=== PATIENT | male | born 1980 | race Caucasian/White ===

== ENCOUNTER 2024-10-01 08:46 | Emergency (ER) | payer OTHER, SELFPAY ==
--- NOTE | ~2024-10-01 | XR_ITS ---
Clinical Indication: Cough, shortness of breath PA and lateral views of the chest: Comparison: None Findings: The lungs are clear, without evidence of focal consolidation or pleural effusion. Cardiome diastinal silhouette is within normal limits. Bones and soft tissues are unremarkable. Impression: Normal chest. Reviewed, dictated and finalized at [facility]. [place] Impression: Normal chest.
[2024-10-01 08:50] VITALS: BP 135/100; PULSE 80; RESP 18; TEMP 36.4; O2SAT 97
--- OUTSIDE RECORDS SUMMARY | 2024-10-01 09:14 | XMS_ITS | Clinical Summary ---
Author Organization [facility] [address] Address [address] [place] [address] Care Team Providers Care Cemetery Keeper Name Role Phone Navdeep King Primary Care Provide r Allergies Active Allergy Reactions Criticality Noted Date Comments Iodinated Contrast Media Medications omeprazole (PriLOSEC) 40 mg capsule TAKE 1 CAPSULE BY MOUTH TWICE A DAY 120 capsule 1 Active albuterol HFA (PROVENTIL HFA,VENTOLIN HFA,PROAIR HFA) 90 mcg/actuation inhaler INHALE 2 PUFFS INTO THE LUNGS EVERY 6 HOURS NEEDED FOR WHEEZE 2 Active famotidine (PEPCID) 20 mg tablet Take 1 tablet (20 mg total) by mouth 2 (two) times a day as needed 2 Active albuterol HFA (PROVENTIL HFA,VENTOLIN HFA,PROAIR HFA) 90 mcg/actuation inhalerIndication s:Mild intermittent asthma, unspecified whether complicated Inhale 2 puffs every 6 (six) hours as needed for wheezing 1 each 2 Active doxycycline (VIBRAMYCIN) 100 mg capsule Take 1 tablet/capsul e (100 mg total) by mouth 2 (two) times a day 20 capsule 2 Active erythromycin (ILOTYCIN) ophthalmic ointment Place a 1/2 inch ribbon of ointment into the lower eyelid. 1 g 2 Active benzonatate (TESSALON) 100 mg capsuleIndication s:Cough Take 1 capsule (100 mg total) by mouth 3 (three) times a day as needed for cough 42 capsule 5 Active azithromycin (ZITHROMAX) 250 mg tabletIndications :Acute cough,Pharyngitis , unspecified etiology Take 2 tabs (500 mg) by mouth today, than 1 tab (250 mg) daily for 4 days. 6 tablet 5 09/29/19 25 predniSONE (DELTASONE) 50 mg tabletIndications :Obstructive Pulmonary Disease Take 1 tablet (50 mg) by mouth daily for 5 days 5 tablet 5 09/29/19 25 Active Problems Problem Noted Date Diagnosed Date Herniated lumbar intervertebral disc 06/13/2010 Congenital spondylolysis of lumbosacral region 1 Encounters Date Type Department Care Team Description 09/24/2024 2:15 PM CERTIFIED PERSONAL FINANCE COUNSELOR Office Visit [facility] [place] [address] [place] [address] Lesley Perera NP Suspected COVID-19 virus infection (Primary Dx); Lower respiratory infection; Acute cough; Pharyngitis, unspecified etiology from Last 3 Months Surgical History Surgery Date Site/Laterality Comments BACK SURGERY Back surgery APPENDECTOMY Appendectomy Medical History Medical History Date Comments Anxiety Bone fracture Dizziness Snoring GERD (gastroesophageal reflux disease) Family History Medical History Relation Name Comments Diabetes Father Diabetes mellit us; Hypertension Father Hypertension; Throat cancer Mother Cancer -throat ; Relation Name Status Comments Father Mother Social History Tobacco Use Types Packs/Day Years Used Date Smoking Tobacco: Never Smokeless Tobacco: Never Alcohol Use Standard Drinks/Week Comments Yes 0 (1 standard drink = 0.6 oz pur e alcohol) Sex and Gender Information Value Date Recorded Sex Assigned at Not on file Legal Sex Male 3:01 AM CERTIFIED PERSONAL FINANCE COUNSELOR Gender Identity Not on file Sexual Orientation Not on file Obstetrics History Last Filed Vital Signs Vital Sign Reading Time Taken Comments Blood Pressure 130/86 09/24/2024 2:07 PM CERTIFIED PERSONAL FINANCE COUNSELOR Pulse 84 09/24/2024 2:07 PM CERTIFIED PERSONAL FINANCE COUNSELOR Temperature 36.4 C (97.5 F) 09/24/2024 2:07 PM CERTIFIED PERSONAL FINANCE COUNSELOR Respiratory Rate 18 09/24/2024 2:07 PM CERTIFIED PERSONAL FINANCE COUNSELOR Oxygen Saturation 98% 09/24/2024 2:07 PM CERTIFIED PERSONAL FINANCE COUNSELOR Inhaled Oxygen Concentration - - Weight 94.8 kg (209 lb) 09/24/2024 2:07 PM CERTIFIED PERSONAL FINANCE COUNSELOR Height 175.3 cm (5' 9 ) 09/24/2024 2:07 PM CERTIFIED PERSONAL FINANCE COUNSELOR Body Mass Index 30.86 09/24/2024 2:07 PM CERTIFIED PERSONAL FINANCE COUNSELOR Plan of Treatment Health Maintenance Due Date Last Done Comments Colon Cancer Screening-Colonoscopy 1978 Depression Screening 1978 Hepatitis C Screening 1978 DTaP/Tdap/Td Vaccine (1 - Tdap) 1989 Hepatitis B Screening 1996 Regular Well Visit/Exam 18-64 1996 Covid-19 Vaccine (3 - 2023-2 5 season) 2024 03/29/2021, 03/08/2021 Influenza Vaccine (#1) 2024 HPV Vaccines Aged Out No longer eligi ble based on patient's age to complete this topic Pneumococcal vaccine <65 Aged Out No longer eligible based on patient's age to complete this topic Procedures Procedure Name Priority Date/Time Associated Diagnosis Comments POCT RAPID STREP Routine 09/24/2024 2:34 PM CERTIFIED PERSONAL FINANCE COUNSELOR Suspected COVID-19 virus infection POC INFLUENZA A/B, COVID-19 ANTIGEN Routine 09/24/2024 2:34 PM CERTIFIED PERSONAL FINANCE COUNSELOR Suspected COVID-19 virus infection from Last 3 Months Results * POC Influenza A/B, COVID-19 antigen (09/24/2024 2:34 PM CERTIFIED PERSONAL FINANCE COUNSELOR) Influenza A Ag, POC Negative Negative [facility] Influenza B Ag, POC Negative Negative [facility] COVID-19 Ag POC Presumptive Negative Presumptive Negative, Invalid [facility] Nasal 09/24/2024 2:34 PM CERTIFIED PERSONAL FINANCE COUNSELOR us Lesley Perera INSPECTOR REPAIRER POINT OF CARE TEST ORDERAB LES Final Result [facility] [address] [place] [address], [facility] * POCT rapid strep A (09/24/2024 2:34 PM CERTIFIED PERSONAL FINANCE COUNSELOR) Rapid Strep A, POC Negative Negative Swab 09/24/2024 2:34 PM CERTIFIED PERSONAL FINANCE COUNSELOR Lesley Perera INSPECTOR REPAIRER POINT OF CARE TEST ORDERAB LES Final Result from Last 3 Months Insurance [facility]/PPO Address: [address] [address] [place] [address] [place] [address] [facility]/PPO Address: [address] [address] [place] [address] Care Teams Cemetery Keeper Relationship Specialty Start Date End Date Navdeep King DO [address] [place] [address] [phone] PCP - General 02/24/22
--- OUTSIDE RECORDS SUMMARY | 2024-10-01 09:14 | XMS_ITS | Referral Summary ---
Author Organization [facility] [address] [place] [address] Care Team Providers Care Bag Cutter Name Role Phone Navdeep King DO Primary Care Provide r Encounters Date Type Department Care Team Description 09/24/2024 2:15 PM HEALTHCARE MANAGEMENT Office Visit [facility] [place] [address] [place] [id number] Lesley Perera, ARIEL Suspected COVID-19 virus infection (Primary Dx); Lower respiratory infection; Acute cough; Pharyngitis, unspecified etiology from Last 3 Months Allergies Active Allergy Reactions Criticality Noted Date [...] 06/13/2010 Congenital spondylolysis of lumbosacral region 1 Social History Tobacco Use Types Packs/Day Years Used Date Smoking Tobacco: Never Smokeless Tobacco: Never Alcohol Use Standard Drinks/Week Comments Yes 0 (1 standard drink = 0.6 oz pur e alcohol) Sex and Gender Information Value Date Recorded Sex Assigned at Not on file Legal Sex Male 3:01 AM HEALTHCARE MANAGEMENT Gender Identity Not on file Sexual Orientation Not on file Last Filed Vital Signs Vital Sign Reading Time Taken Comments Blood Pressure 130/86 09/24/2024 2:07 PM HEALTHCARE MANAGEMENT Pulse 84 09/24/2024 2:07 PM HEALTHCARE MANAGEMENT Temperature 36.4 C (97.5 F) 09/24/2024 2:07 PM HEALTHCARE MANAGEMENT Respiratory Rate 18 09/24/2024 2:07 PM HEALTHCARE MANAGEMENT Oxygen Saturation 98% 09/24/2024 2:07 PM HEALTHCARE MANAGEMENT Inhaled Oxygen Concentration - - Weight 94.8 kg (209 lb) 09/24/2024 2:07 PM HEALTHCARE MANAGEMENT Height 175.3 cm (5' 9 ) 09/24/2024 2:07 PM HEALTHCARE MANAGEMENT Body Mass Index 30.86 09/24/2024 2:07 PM HEALTHCARE MANAGEMENT Plan of Treatment Not on file Procedures Procedure Name Priority Date/Time Associated Diagnosis Comments POCT RAPID STREP Routine 09/24/2024 2:34 PM HEALTHCARE MANAGEMENT Suspected COVID-19 virus infection POC INFLUENZA A/B, COVID-19 ANTIGEN Routine 09/24/2024 2:34 PM HEALTHCARE MANAGEMENT Suspected COVID-19 virus infection from Last 3 Months Results * POC Influenza A/B, COVID-19 antigen (09/24/2024 2:34 PM HEALTHCARE MANAGEMENT) Influenza A Ag, POC Negative Negative [facility] Influenza B Ag, POC Negative Negative [facility] COVID-19 Ag POC Presumptive Negative Presumptive Negative, Invalid [facility] Nasal 09/24/2024 2:34 PM HEALTHCARE MANAGEMENT Lesley Perera NP POINT OF CARE TEST ORDERAB LES Final Result [facility] [address] [place] [address], [facility] * POCT rapid strep A (09/24/2024 2:34 PM HEALTHCARE MANAGEMENT) Rapid Strep A, POC Negative Negative Swab 09/24/2024 2:34 PM HEALTHCARE MANAGEMENT Lesley Perera NIBBLER OPERATOR POINT OF CARE TEST ORDERAB LES Final Result from Last [address] [facility] HMO/PPO Address: [address] [address] [place] [address] [facility] H[facility]/PPO Address: [address] [address] [place] [address] Care Teams Bag Cutter Relationship Specialty Start Date End Date Navdeep King DO [address] [place] [id number] PCP - General 02/24/22
--- OUTSIDE RECORDS SUMMARY | 2024-10-01 09:14 | XMS_ITS | Clinical Summary ---
Author Organization [facility] Address [address] [place] [address] Care Team Providers Care Clinical Documentation Nurse Name Role Phone Unavailable Primary Care Provider Unavailabl e Allergies Active Allergy Reactions Criticality Noted Date Comments Iodinated Contrast Media Hives High 05/04/2010 Medications HYDROcodone-acet aminophen (NORCO) 7.5-325 mg Oral Tab Take 1 Tab by mouth every 6 hours as needed. Every 6 hrs prn 90 Tab 2 05/04/2010 Active Active Problems Problem Noted Date Diagnosed Date Back pain with radiation 05/04/2010 Vitamin D deficiency 05/04/2010 Family History Medical History Relation Name Comments Hypertension Father SLE Mother Relation Name Status Comments Brother Alive Father Alive Mother Alive Sister Alive Social History Tobacco Use Types Packs/Day Years Used Date Smoking Tobacco: Never Alcohol Use Standard Drinks/Week Comments Yes 0 (1 standard drink = 0.6 oz pur e alcohol) Sex and Gender Information Value Date Recorded Sex Assigned at Not on file Legal Sex Male 5:55 AM WARP HANGER Gender Identity Not on file Sexual Orientation Not on file Last Filed Vital Signs Vital Sign Reading Time Taken Comments Blood Pressure 130/70 05/04/2010 2:50 PM CDT Pulse - - Temperature - - Respiratory Rate - - Oxygen Saturation - - Inhaled Oxygen Concentration - - Weight 87.1 kg (192 lb) 05/04/2010 2:50 PM CDT Height 175.3 cm (5' 9 ) 05/04/2010 2:50 PM CDT Body Mass Index 28.35 05/04/2010 2:50 PM CDT Plan of Treatment Health Maintenance Due Date Last Done Comments DTAP/TDAP/TD VACCINES (1 - Tdap) 1997 HEPATITIS B VACCINES (1 of 3 - 19+ 3-dose series) 1997 COLORECTAL SCREENING 2023 Colorectal Cancer Screening 2023 FIT-DNA Q 3 years 2023 FIT/FOBT Q 1 year 2023 Flex Sig/CT Colonography Q 5 years 2023 INFLUENZA VACCINE (#1) 2024 HPV VACCINES Aged Out No longer eligi ble based on patient's age to complete this topic Insurance
--- OUTSIDE RECORDS SUMMARY | 2024-10-01 09:14 | XMS_ITS | Clinical Summary ---
Author Organization [facility] [employer] Address [address] [address] Care Team Providers Care Radio Station Engineer Name Role Phone Unavailable Primary Care Provider Unavailabl e Source Comments [facility] [employer],non-owned Affiliates and Associated Physician Practices is amultiple site organization consisting of ambulatory clinics and hospital sitesin [place], [place], [place] and [place]. This disclosure is being madepursuant to the Care Everywhere program and may not contain all information available regarding this patient. Last updated 18.[employer] Allergies Active Allergy Reactions Criticality Noted Date Comments Iodine Urticaria,Shortness of Breath High 2009 Medications Be aware that medications may not be up to date on this document. Always verify current medications with the patient. No known medications Active Problems Problem Noted Date Diagnosed Date Vitamin D deficiency 04/04/2010 Sleep disturbance 03/28/2010 Low back pain 03/28/2010 Overview (06/27/2015): Folliculitis 03/28/2010 Family History Medical History Relation Name Comments Diabetes - Type 1 Father Hypertension Father Lupus Mother Relation Name Status Comments Father Mother Social History Tobacco Use Types Packs/Day Years Used Date Smoking Tobacco: Never Smokeless Tobacco: Never Alcohol Use Standard Drinks/Week Comments Yes 0 (1 standard drink = 0.6 oz pur e alcohol) rare Sex and Gender Information Value Date Recorded Sex Assigned at Not on file Gender Identity Not on file Sexual Orientation Not on file Last Filed Vital Signs Vital Sign Reading Time Taken Comments Blood Pressure 148/100 03/23/2019 3:17 PM CDT Pulse 63 03/23/2019 3:17 PM CDT Temperature 37.1 C (98.8 F) 03/23/2019 3:17 PM CDT Respiratory Rate 16 03/23/2019 3:17 PM CDT Oxygen Saturation 97% 03/23/2019 3:17 PM CDT Inhaled Oxygen Concentration - - Weight 95.3 kg (210 lb) 03/23/2019 3:17 PM CDT Height 175.3 cm (5' 9 ) 03/23/2019 3:17 PM CDT Body Mass Index 31.01 03/23/2019 3:17 PM CDT Plan of Treatment Health Maintenance Due Date Last Done Comments COLOGUARD (AGES 45-75) - COL ON CA SCREENING 1978 COLON MONITORING 1978 COLONOSCOPY - COLON CA SCREENING 1978 CT COLONOGRAPHY - COLON CA SCREENING 1978 Colorectal Cancer Screening 1978 FIT - COLON CA SCREENING 1978 FLEX SIG - COLON CA SCREENING 1978 LIPID TESTING 1978 HIV SCREENING 1993 HEPATITIS C SCREENING 09/12/1996 DTAP/TDAP/TD VACCINES (1 - Tdap) 1997 HEPATITIS B VACCINE (1 of 3 - 19+ 3-dose series) 1997 SCREENING FOR DIABETES 12/11/2018 03/28/2010 COVID-19 VACCINE (1 - 2023-2 5 season) 2024 INFLUENZA VACCINE (#1) 2024 DEPRESSION SCREENING 08/20/2024 ZOSTER VACCINE (1 of 2) 2028 HIB VACCINE Aged Out No longer eligi ble based on patient's age to complete this topic HPV VACCINE Aged Out No longer eligi ble based on patient's age to complete this topic MENINGOCOCCAL (Group B) VACCINE Aged Out No longer eligible based on patient's age to complete this topic MENINGOCOCCAL VACCINE Aged Out No kari sharlene eligible based on patient's age to complete this topic PNEUMOCOCCAL VACCINE Aged Out No long er eligible based on patient's age to complete this topic Procedures Procedure Name Priority Date/Time Associated Diagnosis Comments GENERAL HEALTH PANEL Routine 03/28/2010 4:23 PM CDT Malaise and Fatigue from Last 3 Months or Most Recently Relevant to Health Maintenance Results * (ABNORMAL) GENERAL HEALTH PANEL (03/28/2010 4:23 PM CDT) Glucose 91 65 - 99 mg/dL [facility] INSURANCE BILL BUN 13 5 - 26 mg/dL [facility] INSURANCE BILL Creatinine 1.07 0.76 - 1.27 mg/dL [facility] INSURANCE BILL eGFR by MDRD >59 >59 mL/min/1. 73 [facility] INSURANCE BILL eGFR by MDRD >59 >59 mL/min/1. 73 [facility] INSURANCE BILL Comment: Note: Persistent reduction for 3 months or more in an eGFR <60 mL/min/1.73 m2 defines CKD. Patients with eGFR values >/=60 mL/min/1.73 m2 may also have CKD if evidence of persistent proteinuria is present. Additional information may be found at www.kdoqi.org. BUN/Creatinine Ratio 12 8 - 27 [facility] INSURANCE BILL Sodium 142 135 - 145 mmol/L [facility] INSURANCE BILL Potassium 4.4 3.5 - 5.2 mmol/L [facility] INSURANCE BILL Chloride 101 97 - 108 mmol/L [facility] INSURANCE BILL CO2 24 20 - 32 mmol/L [facility] INSURANCE BILL Calcium 9.3 8.7 - 10.2 mg/dL [facility] INSURANCE BILL Protein Total 7.3 6.0 - 8.5 g/dL [facility] INSURANCE BILL Albumin 4.6 3.5 - 5.5 g/dL [facility] INSURANCE BILL Globulin Total 2.7 1.5 - 4.5 g/dL [facility] INSURANCE BILL Albumin/Globulin Ratio 1.7 1.1 - 2.5 [facility] INSURANCE BILL Bilirubin Total 0.3 0.0 - 1.2 mg/dL [facility] INSURANCE BILL Alkaline Phosphatase 60 25 - 150 IU/L [facility] INSURANCE BILL AST 21 0 - 40 IU/L [facility] INSURANCE BILL ALT 30 0 - 55 IU/L [facility] INSURANCE BILL TSH 1.590 0.450 - 4.500 uIU/mL [facility] INSURANCE BILL Comment:Please note refere nce interval change WBC 10.8(H) 4.0 - 10.5 x10E3/uL [facility] INSURANCE BILL RBC 5.12 4.10 - 5.60 x10E6/uL [facility] INSURANCE BILL Hemoglobin 14.5 12.5 - 17.0 g/dL [facility] INSURANCE BILL Hematocrit 42.5 36.0 - 50.0 % [facility] INSURANCE BILL MCV 83 80 - 98 fL [facility] INSURANCE BILL MCH 28.3 27.0 - 34.0 pg [facility] INSURANCE BILL MCHC 34.1 32.0 - 36.0 g/dL [facility] INSURANCE BILL RDW 13.1 11.7 - 15.0 % [facility] INSURANCE BILL Platelet Count 297 140 - 415 x10E3/uL [facility] INSURANCE BILL Granulocytes % 62 40 - 74 % [facility] INSURANCE BILL Lymphocytes % 30 14 - 46 % [facility]URANCE BILL Monocytes % 5 4 - 13 % [facility] INSURANCE BILL Eosinophils % 3 0 - 7 % [facility] INSURANCE BILL Basophils % 0 0 - 3 % [facility] INSURANCE BILL Immature Cells CANCELED [facility] INSURANCE BILL Comment:Result canceled by cristino krishnan ancillary Granulocytes Absolute 6.6 1.8 - 7.8 x10E3/uL [facility] INSURANCE BILL Lymphocytes Absolute 3.2 0.7 - 4.5 x10E3/uL [facility] INSURANCE BILL Monocytes Absolute 0.6 0.1 - 1.0 x10E3/uL [facility] INSURANCE BILL Eosinophils Absolute 0.3 0.0 - 0.4 x10E3/uL [facility] INSURANCE BILL Basophils Absolute 0.0 0.0 - 0.2 x10E3/uL [facility] INSURANCE BILL Immature Granulocytes 0 0 - 1 % [facility] INSURANCE BILL Immature Granulocytes Absolute 0.0 0.0 - 0.1 x10E3/uL [facility] INSURANCE BILL nRBC CANCELED [facility] INSURANCE BILL Comment:Result canceled by cristino krishnan ancillary Comment Hematology CANCELED [facility] INSURANCE BILL Comment:Result canceled by cristino krishnan ancillary BLOOD SPECIMEN / Unknown 03/28/2010 4:23 PM CDT 03/28/2010 9:24 PM CDT Narrative Resulting Agency Comment [facility] [address] [phone] Octavio Schaffer MD LAB - CHEMISTRY OR DERABLES [facility] INSURANCE BILL from Last 3 Months or Most Recently Relevant [place] [address] Juan Cordova Personal/Family Self 1980 [address] [place] [address] Juan Cordova Personal/Family Self 1980 [address] [place] [address]
--- OUTSIDE RECORDS SUMMARY | 2024-10-01 09:14 | XMS_ITS | Patient Health Summary ---
Author Organization [facility] Address [address] [place] [address] Care Team Providers Care Digital Advertising Specialist Name Role Phone Unavailable Primary Care Provider Unavailabl e Note from [facility],non-owned Affiliates and Associated Physician Practices is amultiple site organization consisting of ambulatory clinics and hospital sitesin [place], [place], [place] and [place]. This disclosure is being madepursuant to the Care Everywhere program and may not contain all information available regarding this patient. Last updated 18.[facility] Allergies * Iodine(Urticaria,Shortness of Breath) -High Criticality Medications Be aware that medications may not be up to date on this document. Always verify current medications with the patient. No known medications Active Problems Problem Noted Date Diagnosed Date Vitamin D deficiency 04/04/2010 Sleep disturbance 03/28/2010 Low back pain 03/28/2010 Folliculitis 03/28/2010 Social History Tobacco Use Types Packs/Day Years [...] Mass Index 31.01 03/23/2019 3:17 PM CDT Procedures * MRI LUMBAR SPINE WWO CONTRAST(Performed 03/30/2010) Performed for LBP (Low Back Pain) * TESTOSTERONE MALE FREE(Performed 03/28/2010) Performed for Malaise and Fatigue * VITAMIN D 25-HYDROXY(Performed 03/28/2010) Performed for Malaise and Fatigue * GENERAL HEALTH PANEL(Performed 03/28/2010) Performed for Malaise and Fatigue * GROSS EXAM PATHOLOGY(Performed 06/21/1995) Results * MRI SPINE LUMBAR WITH & WITHOUT CONTRAST MP (03/30/2010 1:12 PM CDT) Anatomical Region Laterality Modality Spine Magnetic Resonan ce 03/30/2010 2:03 PM CDT Impressions 03/30/2010 2:03 PM CDT 1. Prior left partial laminectomy at L5-S1 and enhancing scar. No residual or recurrent disk herniation. Narrative 03/30/2010 2:03 PM CDT MRI lumbar spine with and without contrast. Indication: Progressive back pain with difficulty walking and running for last 2 years. Prior lumbar surgery 10 years ago. Comparison: [none ] Technique: Multiplanar, multiweighted MR images of Lumbar Spine without intravenous contrast. Findings: There are no comparison radiographs of the lumbar spine available at this time. For the purposes of this examination, it should be assumed that this patient has 5 lumbar vertebral bodies. Alignment: Normal, minimal grade 1 retrolisthesis at L5-S1. Marrow: Normal Spinal cord: Normal Disc spaces: Disk desiccation and disk bulges particularly at L5-S1. Following levels were directly imaged in the axial plane: L5-S1: Prior partial laminectomy on the left side with enhancing scar in the left lateral recess. L4-L5: Mild annular bulge L3-L4: Unremarkable L2-L3: Unremarkable L1-L2: Unremarkable Following intravenous contrast there is no abnormal enhancement in the spinal cord or spinal canal.. Procedure Note Vik Campos MD - 03/30/2010 MRI lumbar spine with and without contrast. Indication: Progressive back pain with difficulty walking and running for last 2 years. Prior lumbar surgery 10 years ago. Comparison: [none ] Technique: Multiplanar, multiweighted MR images of Lumbar Spine without intravenous contrast. Findings: There are no comparison radiographs of the lumbar spine available at this time. For the purposes of this examination, it should be assumed that this patient has 5 lumbar vertebral bodies. Alignment: Normal, minimal grade 1 retrolisthesis at L5-S1. Marrow: Normal Spinal cord: Normal Disc spaces: Disk desiccation and disk bulges particularly at L5-S1. Following levels were directly imaged in the axial plane: L5-S1: Prior partial laminectomy on the left side with enhancing scar in the left lateral recess. L4-L5: Mild annular bulge L3-L4: Unremarkable L2-L3: Unremarkable L1-L2: Unremarkable Following intravenous contrast there is no abnormal enhancement in the spinal cord or spinal canal.. IMPRESSION 1. Prior left partial laminectomy at L5-S1 and enhancing scar. No residual or recurrent disk herniation. Octavio Schaffer MD MR ORDERABLES * (ABNORMAL) GENERAL HEALTH PANEL (03/28/2010 4:23 [...] CANCELED [facility] INSURANCE BILL Comment:Result canceled by t he ancillary Comment Hematology CANCELED [facility] INSURANCE BILL Comment:Result canceled by t he ancillary BLOOD SPECIMEN / Unknown 03/28/2010 4:23 PM CDT 03/28/2010 9:24 PM CDT Narrative Resulting Agency Comment [address] [id number] Octavio Schaffer MD LAB - CHEMISTRY OR DERABLES [facility] INSURANCE BILL * (ABNORMAL) VITAMIN D 25-HYDROXY (03/28/2010 4:23 PM CDT) Vitamin D, 25 Hydroxy 20.4(L) 32.0 - 100.0 ng/mL [facility] INSURANCE BILL Comment: Recent studies consider the lower limit of 32.0 ng/mL to be a threshold for optimal health. Shen BW. J Nutr. 2005 Sep;135(2):317-22. BLOOD SPECIMEN / Unknown 03/28/2010 4:23 PM CDT 03/28/2010 9:24 PM CDT Narrative Resulting Agency Comment [address] [id number] Octavio Schaffer MD LAB - CHEMISTRY OR DERABLES [facility] INSURANCE BILL * TESTOSTERONE MALE FREE (03/28/2010 4:23 PM CDT) Free Testosterone(Di rect) 9.8 8.7 - 25.1 pg/mL [facility] INSURANCE BILL BLOOD SPECIMEN / Unknown 03/28/2010 4:23 PM CDT 03/28/2010 9:24 PM CDT Narrative Resulting Agency Comment [facility] [address] [phone] Octavio Schaffer MD LAB - CHEMISTRY OR DERABLES [facility] INSURANCE BILL * GROSS EXAM PATHOLOGY (06/21/1995 3:00 PM COMPUTATOR) Result CASE NUMBER [id number] [facility] PATH REPORT Comment: ORDERING PHYSICIAN ROBERT CASTELLANOS SPECIMEN TYPE Nails-X2 CLINICAL HISTORY The patient is a 14-year-old boy who is status post right femoral fracture with internal fixation. GROSS DESCRIPTION Submitted in one container for gross examination only labeled nails X 2 are two metallic, curved nails each with a measurement of 38 cm. in length x 0.5 cm. in diameter. (CT/akn) GROSS DIAGNOSIS GROSS DIAGNOSIS ORTHOPEDIC HARDWARE. Seedling Puller Michelle Dominguez RESIDENT IN PATHOLOG Wilber Valencia M.D. PATHOLOGIST Stanford Eid M.D. ELECTRONICALLY [facility] MISCELLANEOUS SAMPLES / Unknown 06/21/1995 3:00 PM COMPUTATOR 06/21/1995 3:38 PM COMPUTATOR Historical Provider LAB - PATHOLOGY/C YTOLOGY ORDERABLES Performing Organization Address City/[facility]/ZIP Co de Phone Number [facility] PATH REPORT
--- OUTSIDE RECORDS SUMMARY | 2024-10-01 09:14 | XMS_ITS | Clinical Summary ---
Author Organization [facility] Address [address] [place] [address] Care Team Providers Care Doctor Assistant Name Role Phone Navdeep King DO Primary Care Provider + Allergies Active Allergy Reactions Criticality Noted Date Comments Iodinated Contrast Media Anaphylaxis High 10/14/2020 Iodine Hives High 05/04/2010 Medications ibuprofen 200 MG tablet Take 1 tablet (200 mg total) by mouth every 6 (six) hours as needed for Pain. Active albuterol sulfate HFA 108 (90 Base) MCG/ACT inhalerIndication s:Bronchitis INHALE 2 PUFFS INTO THE LUNGS EVERY 6 HOURS NEEDED FOR WHEEZE 18 g 5 2 Active losartan (COZAAR) 25 MG tabletIndications :Primary hypertension Take 1 tablet (25 mg total) by mouth daily. 90 tablet 3 4 Active omeprazole (PRILOSEC) 40 MG capsuleIndication s:Gastroesophagea l reflux disease, unspecified whether esophagitis present Take 1 capsule (40 mg total) by mouth daily. 90 capsule 3 4 Active Active Problems Problem Noted Date Diagnosed Date Herniated lumbar intervertebral disc 06/13/2010 Vitamin D deficiency 04/04/2010 Family History Medical History Relation Comments Depression Father Diabetes Father Heart Disease Father Hyperlipidemia Father Stroke Father Relation Status Comments Father Alive Mother Alive health condition s unknown Social History Tobacco Use Types Packs/Day Years Used Date Smoking Tobacco: Never Smokeless Tobacco: Never Tobacco Cessation:Counseling Given: No Comments:na Alcohol Use Standard Drinks/Week Comments Yes 0 (1 standard drink = 0.6 oz pur e alcohol) occasionally PHQ-2 Answer Date Recorded Patient Health Questionnaire-2 Score 0 02/19/2024 Sex and Gender Information Value Date Recorded Sex Assigned at Not on file Legal Sex Male 11:05 AM CDT Gender Identity Not on file Sexual Orientation Not on file 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 Not on file Not on file Not on file Last Filed Vital Signs Vital Sign Reading Time Taken Comments Blood Pressure 122/80 02/19/2024 10:35 AM CDT Pulse 70 02/19/2024 10:35 AM CDT Temperature 36.9 C (98.4 F) 02/19/2024 10:35 AM CDT Respiratory Rate 20 02/19/2024 10:35 AM CDT Oxygen Saturation 98% 02/19/2024 10:35 AM CDT Inhaled Oxygen Concentration - - Weight 94.5 kg (208 lb 4.8 oz) 02/19/2024 10:35 AM CDT Height 175.3 cm (5' 9 ) 02/19/2024 10:35 AM CDT Body Mass Index 30.76 02/19/2024 10:35 AM CDT Plan of Treatment Upcoming Encounters Date Type Department Care Team (Late st Contact Info) Description 11/03/2024 9:40 AM CDT Office Visit [facility] Family & Internal Medicine [address] [phone] Navdeep King, [address] [place] [id number] Health Maintenance Due Date Last Done Comments Colorectal Cancer Screening Colonoscopy (10 Years) 1980 Annual Physical 1981 Hepatitis C 1996 Hepatitis B Vaccines (1 of 3 - 19+ 3-dose series) 1997 COVID-19 Vaccine (3 - 2023-2 5 season) 2024 03/29/2021, 03/08/2021 Influenza Adult (#1) 2024 PHQ-2 (Physician [place]) 08/20/2024 02/19/2024 DTaP, Tdap and Td Vaccines ( 1 - Tdap) 02/18/2025 Postponed from 09/17 (Patient Refused) HPV Vaccines Aged Out No longer eligi ble based on patient's age to complete this topic Meningococcal B Vaccine Aged Out No l onger eligible based on patient's age to complete this topic Meningococcal Vaccine Aged Out No kari sharlene eligible based on patient's age to complete this topic Pneumococcal Vaccine: Pediatrics (0 to 5 Years) and At-Risk Patients (6 to 64 Years) Aged Out No longer eligible b ased on patient's age to complete this topic RSV Immunizations Under 20 Months Aged Out No longer eligible b ased on patient's age to complete this topic Care Teams Doctor Assistant Relationship Specialty Start Date End Date Navdeep King DO [address] [place] [phone] PCP - General FAMILY PRACTICE 03/22/21
--- OUTSIDE RECORDS SUMMARY | 2024-10-01 09:14 | XMS_ITS | Clinical Summary ---
Author Organization [facility] Address [address] [place] [address] Phone Care Team Providers Care Medical Dir Name Role Phone Provider, None Primary Care Provider Unavailabl e Allergies Active Allergy Reactions Criticality Noted Date Comments Iodinated Contrast Media Anaphylaxis 10/14/2020 Medications No known medications Social History Tobacco Use Types Packs/Day Years Used Date Smoking Tobacco: Never Smokeless Tobacco: Never Alcohol Use Standard Drinks/Week Comments Yes 0 (1 standard drink = 0.6 oz pur e alcohol) social Sex and Gender Information Value Date Recorded Sex Assigned at Not on file Legal Sex Male 9:06 PM CDT Gender Identity Not on file Sexual Orientation Not on file Last Filed Vital Signs Vital Sign Reading Time Taken Comments Blood Pressure 140/87 10/14/2020 6:45 PM GRADING MACHINE OPERATOR Pulse 63 10/14/2020 6:45 PM GRADING MACHINE OPERATOR Temperature 36.1 C (96.9 F) 10/14/2020 4:03 PM GRADING MACHINE OPERATOR Respiratory Rate 16 10/14/2020 6:45 PM GRADING MACHINE OPERATOR Oxygen Saturation 99% 10/14/2020 6:45 PM GRADING MACHINE OPERATOR Inhaled Oxygen Concentration - - Weight 99.8 kg (220 lb) 10/14/2020 4:03 PM GRADING MACHINE OPERATOR Height 175.3 cm (5' 9 ) 10/14/2020 4:03 PM GRADING MACHINE OPERATOR Body Mass Index 32.49 10/14/2020 4:03 PM GRADING MACHINE OPERATOR Plan of Treatment Not on file Insurance [employer] [facility] Care Teams Medical Dir Relationship Specialty Start Date End Date Provider, None [place] PCP - General 10/14/20
--- OUTSIDE RECORDS SUMMARY | 2024-10-01 09:14 | XMS_ITS | Referral Summary ---
Author Organization [email or web address] Address [address] [place] [address] Care Team Providers Care Statistical Programmer Analyst Name Role Phone Unavailable Primary Care Provider Unavailabl e Source Comments [email or web address],non-owned Affiliates and Associated Physician Practices is amultiple site organization consisting of ambulatory clinics and hospital sitesin [place], [place], [place] and [place]. This disclosure is being madepursuant to the Care Everywhere program and may not contain all information available regarding this patient. Last updated 18.[employer] [email or web address] Allergies Active Allergy Reactions Criticality Noted Date Comments Iodine Urticaria,Shortness of Breath High 2009 Medications Be aware that medications may not be up to date on this document. Always verify current medications with the patient. No known medications Active Problems Problem Noted Date Diagnosed Date Vitamin D deficiency 04/04/2010 Sleep disturbance 03/28/2010 Low back pain 03/28/2010 Overview (06/27/2015): Folliculitis 03/28/2010 Social History Tobacco Use Types [...] 03/23/2019 3:17 PM CDT Plan of Treatment Not on file Procedures [...] PM CDT Narrative Resulting Agency Comment [facility] [address] [id number] Octavio Schaffer MD LAB - CHEMISTRY OR DERABLES [facility] INSURANCE BILL from Last 3 Months or Most [place] [address] Juan Cordova Personal/Family Self 1980 [address] [place] [address] Juan Cordova Personal/Family Self 1980 [address] [place] [address]
[2024-10-01 09:44] LABS: Influenza A QL RT-PCR Negative (Negative); Influenza B QL RT-PCR Negative (Negative); RSV RNA, RT-PCR Negative (Negative); SARS-CoV-2 RNA PCR Negative (Negative)
--- NOTE | 2024-10-01 09:51 | ECG_ITS ---
Test Date: 2024-10-01 10:16:37 Measurements Intervals [place] Rate: 76 P: 20 SC: 138 QRS: 4 QRSD: 84 T: -3 QT: 347 QTc: 391 Interpretive Statements SINUS RHYTHM NONSPECIFIC T-WAVE ABNORMALITY- INFERIOR LEADS BASELINE WANDER- I, II, III, AVF BORDERLINE ECG No previous ECG available for comparison Electronically Signed On 10-01-2024 10:26:05 INSURANCE UNDERWRITER SALES by Leonardo Oconnell D.O.
--- OUTSIDE RECORDS SUMMARY | 2024-10-01 09:52 | XMS_ITS | Clinical Summary ---
Author Organization [facility] [employer] Address [address] [place] [address] Care Team Providers Care Processing Assistant Name Role Phone Navdeep King Primary Care [...] Department Care Team Description 09/24/2024 2:15 PM AVIATION MAINTENANCE TECHNICIAN Office Visit [facility] [place] [address] [place] [address] Lesley Perera NP Suspected COVID-19 virus [...] on file Legal Sex Male 3:01 AM AVIATION MAINTENANCE TECHNICIAN Gender Identity Not on file Sexual Orientation Not on file Obstetrics History Last Filed Vital Signs Vital Sign Reading Time Taken Comments Blood Pressure 130/86 09/24/2024 2:07 PM AVIATION MAINTENANCE TECHNICIAN Pulse 84 09/24/2024 2:07 PM AVIATION MAINTENANCE TECHNICIAN Temperature 36.4 C (97.5 F) 09/24/2024 2:07 PM AVIATION MAINTENANCE TECHNICIAN Respiratory Rate 18 09/24/2024 2:07 PM AVIATION MAINTENANCE TECHNICIAN Oxygen Saturation 98% 09/24/2024 2:07 PM AVIATION MAINTENANCE TECHNICIAN Inhaled Oxygen Concentration - - Weight 94.8 kg (209 lb) 09/24/2024 2:07 PM AVIATION MAINTENANCE TECHNICIAN Height 175.3 cm (5' 9 ) 09/24/2024 2:07 PM AVIATION MAINTENANCE TECHNICIAN Body Mass Index 30.86 09/24/2024 2:07 PM AVIATION MAINTENANCE TECHNICIAN Plan of Treatment Health Maintenance Due Date [...] POCT RAPID STREP Routine 09/24/2024 2:34 PM AVIATION MAINTENANCE TECHNICIAN Suspected COVID-19 virus infection POC INFLUENZA A/B, COVID-19 ANTIGEN Routine 09/24/2024 2:34 PM AVIATION MAINTENANCE TECHNICIAN Suspected COVID-19 virus infection from Last 3 Months Results * POC Influenza A/B, COVID-19 antigen (09/24/2024 2:34 PM AVIATION MAINTENANCE TECHNICIAN) Influenza A Ag, POC Negative Negative [facility] Influenza B Ag, POC Negative Negative [facility] COVID-19 Ag POC Presumptive Negative Presumptive Negative, Invalid [facility] Nasal 09/24/2024 2:34 PM AVIATION MAINTENANCE TECHNICIAN us Lesley Perera BEZEL CUTTER POINT OF CARE TEST ORDERAB LES Final Result [facility] [address] [place] [address], [facility] * POCT rapid strep A (09/24/2024 2:34 PM AVIATION MAINTENANCE TECHNICIAN) Rapid Strep A, POC Negative Negative Swab 09/24/2024 2:34 PM AVIATION MAINTENANCE TECHNICIAN Lesley Perera BEZEL CUTTER POINT OF CARE TEST ORDERAB LES Final Result from Last 3 Months Insurance [address] [address] [facility] CHOICE PLUS Care Teams Processing Assistant Relationship Specialty Start Date End Date Navdeep King DO [address] [place] [phone] PCP - General 02/24/22
--- OUTSIDE RECORDS SUMMARY | 2024-10-01 09:52 | XMS_ITS | Referral Summary ---
Author Organization [facility] [employer] Address [address] [place] [address] Care Team Providers Care Before School Babysitter Name Role Phone Navdeep King DO Primary Care Provide r Encounters Date Type Department Care Team Description 09/24/2024 2:15 PM GRANTS ASSISTANT Office Visit [facility] [place] [address] [place] [phone] Lesley Perera, ARIEL Suspected COVID-19 virus infection [...] on file Legal Sex Male 3:01 AM GRANTS ASSISTANT Gender Identity Not on file Sexual Orientation Not on file Last Filed Vital Signs Vital Sign Reading Time Taken Comments Blood Pressure 130/86 09/24/2024 2:07 PM GRANTS ASSISTANT Pulse 84 09/24/2024 2:07 PM GRANTS ASSISTANT Temperature 36.4 C (97.5 F) 09/24/2024 2:07 PM GRANTS ASSISTANT Respiratory Rate 18 09/24/2024 2:07 PM GRANTS ASSISTANT Oxygen Saturation 98% 09/24/2024 2:07 PM GRANTS ASSISTANT Inhaled Oxygen Concentration - - Weight 94.8 kg (209 lb) 09/24/2024 2:07 PM GRANTS ASSISTANT Height 175.3 cm (5' 9 ) 09/24/2024 2:07 PM GRANTS ASSISTANT Body Mass Index 30.86 09/24/2024 2:07 PM GRANTS ASSISTANT Plan of Treatment Not on file Procedures Procedure Name Priority Date/Time Associated Diagnosis Comments POCT RAPID STREP Routine 09/24/2024 2:34 PM GRANTS ASSISTANT Suspected COVID-19 virus infection POC INFLUENZA A/B, COVID-19 ANTIGEN Routine 09/24/2024 2:34 PM GRANTS ASSISTANT Suspected COVID-19 virus infection from Last 3 Months Results * POC Influenza A/B, COVID-19 antigen (09/24/2024 2:34 PM GRANTS ASSISTANT) Influenza A Ag, POC Negative Negative [facility] Influenza B Ag, POC Negative Negative [facility] COVID-19 Ag POC Presumptive Negative Presumptive Negative, Invalid [facility] Nasal 09/24/2024 2:34 PM GRANTS ASSISTANT Lesley Perera NP POINT OF CARE TEST ORDERAB LES Final Result [facility] [address] [place] [address], [facility] * POCT rapid strep A (09/24/2024 2:34 PM GRANTS ASSISTANT) Rapid Strep A, POC Negative Negative Swab 09/24/2024 2:34 PM GRANTS ASSISTANT Lesley Perera RACE CAR DRIVER POINT OF CARE TEST ORDERAB LES Final Result from Last 3 Months Insurance [facility] HMO/PPO Address: [address] [address] [place] [address] [facility] CHOICE PLUS [facility] HMO/PPO Address: [address] [address] [place] [address] Care Teams Before School Babysitter Relationship Specialty Start Date End Date Navdeep King DO [address] [place] [phone] PCP - General 02/24/22
--- OUTSIDE RECORDS SUMMARY | 2024-10-01 09:52 | XMS_ITS | Clinical Summary ---
Author Organization [facility] Address [address] [place] [address] Phone Care Team Providers Care Carding Doubler Name Role Phone Provider, None Primary Care [...] Comments Blood Pressure 140/87 10/14/2020 6:45 PM RETAIL SALESWORKER Pulse 63 10/14/2020 6:45 PM RETAIL SALESWORKER Temperature 36.1 C (96.9 F) 10/14/2020 4:03 PM RETAIL SALESWORKER Respiratory Rate 16 10/14/2020 6:45 PM RETAIL SALESWORKER Oxygen Saturation 99% 10/14/2020 6:45 PM RETAIL SALESWORKER Inhaled Oxygen Concentration - - Weight 99.8 kg (220 lb) 10/14/2020 4:03 PM RETAIL SALESWORKER Height 175.3 cm (5' 9 ) 10/14/2020 4:03 PM RETAIL SALESWORKER Body Mass Index 32.49 10/14/2020 4:03 PM RETAIL SALESWORKER Plan of Treatment Not on file Insurance [employer] [facility] Care Teams Carding Doubler Relationship Specialty Start Date End Date Provider, None [place] PCP - General 10/14/20
--- OUTSIDE RECORDS SUMMARY | 2024-10-01 09:52 | XMS_ITS | Clinical Summary ---
Author Organization [facility] [employer] Address [address] [place] [address] Care Team Providers Care High Lift Mule Operator Name Role Phone Unavailable Primary Care Provider Unavailabl e Source Comments [facility] [employer],non-owned Affiliates and Associated Physician Practices is amultiple site organization consisting of ambulatory clinics and hospital sitesin [place], [place], [place] and [place]. This disclosure is being madepursuant to the Care Everywhere program and may not contain all information available regarding this patient. Last updated 18.[employer] Allergies Active Allergy Reactions Criticality Noted Date [...] PM CDT Narrative Resulting Agency Comment [facility] [address] [phone] Octavio Schaffer MD LAB - CHEMISTRY OR DERABLES [facility] INSURANCE BILL from Last 3 Months or Most Recently Relevant [place] [address] Juan Cordova Personal/Family Self 1980 [address] [place] [address] Juan Cordova Personal/Family Self 1980 [address] [place] [address]
--- OUTSIDE RECORDS SUMMARY | 2024-10-01 09:52 | XMS_ITS | Clinical Summary ---
Author Organization [facility] Address [address] [place] [address] Care Team Providers Care Deputy Of Counter Intelligence Name Role Phone Unavailable Primary Care Provider [...] on file Legal Sex Male 5:55 AM VISUALIZER Gender Identity Not on file Sexual Orientation [...]
--- OUTSIDE RECORDS SUMMARY | 2024-10-01 09:52 | XMS_ITS | Referral Summary ---
Author Organization [facility] [employer] Address [address] [place] [address] Care Team Providers Care Feedmobile Driver Name Role Phone Unavailable Primary Care Provider Unavailabl e Source Comments [facility] [employer],non-owned Affiliates and Associated Physician Practices is amultiple site organization consisting of ambulatory clinics and hospital sitesin [place], [place], [place] and [place]. This disclosure is being madepursuant to the Care Everywhere program and may not contain all information available regarding this patient. Last updated [email or web address] Allergies Active Allergy Reactions Criticality Noted Date [...] PM CDT Narrative Resulting Agency Comment [facility] [address] [id number] Octavio Schaffer MD LAB - CHEMISTRY OR DERABLES [facility] INSURANCE BILL from Last 3 Months or Most Recently Relevant [place] [address] Juan Cordova Personal/Family Self 1980 [address] [place] [address] Juan Cordova Personal/Family Self 1980 [address] [place] [address]
--- OUTSIDE RECORDS SUMMARY | 2024-10-01 09:52 | XMS_ITS | Patient Health Summary ---
Author Organization [facility] Address [address] [place] [address] Care Team Providers Care Sporting Goods Sales Associate Name Role Phone Unavailable Primary Care Provider Unavailabl e Note from [facility],non-owned Affiliates and Associated Physician Practices is amultiple site organization consisting of ambulatory clinics and hospital sitesin [place], [place], [place] and [place]. This disclosure is being madepursuant to the Care Everywhere program and may not contain all information available regarding this patient. Last updated 18.[facility] Allergies * Iodine(Urticaria,Shortness of Breath) -High Criticality [...] 9:24 PM CDT Narrative Resulting Agency Comment [address] [phone] Octavio Schaffer MD LAB - CHEMISTRY OR [...] 9:24 PM CDT Narrative Resulting Agency Comment [address] [phone] Octavio Schaffer MD LAB - CHEMISTRY OR DERABLES [facility] INSURANCE BILL * TESTOSTERONE MALE FREE (03/28/2010 4:23 PM CDT) Free Testosterone(Di rect) 9.8 8.7 - 25.1 pg/mL [facility] INSURANCE BILL BLOOD SPECIMEN / Unknown 03/28/2010 4:23 PM CDT 03/28/2010 9:24 PM CDT Narrative Resulting Agency Comment [facility] [address] [phone] Octavio Schaffer MD LAB - CHEMISTRY OR DERABLES [facility] INSURANCE BILL * GROSS EXAM PATHOLOGY (06/21/1995 3:00 PM PERSONAL BANKING ASSISTANT) Result CASE NUMBER [id number] [facility] PATH REPORT Comment: ORDERING PHYSICIAN ROBERT [...] (CT/akn) GROSS DIAGNOSIS GROSS DIAGNOSIS ORTHOPEDIC HARDWARE. Outside Machinist Supervisor Michelle Dominguez RESIDENT IN PATHOLOG Wilber Valencia M.D. PATHOLOGIST Stanford Eid M.D. ELECTRONICALLY [facility] MISCELLANEOUS SAMPLES / Unknown 06/21/1995 3:00 PM PERSONAL BANKING ASSISTANT 06/21/1995 3:38 PM PERSONAL BANKING ASSISTANT Historical Provider LAB - PATHOLOGY/C YTOLOGY ORDERABLES Performing Organization Address City/[facility]/ZIP Co de Phone Number [facility] PATH REPORT
--- OUTSIDE RECORDS SUMMARY | 2024-10-01 09:52 | XMS_ITS | Clinical Summary ---
Author Organization [facility] Address [address] [place] [id number] Care Team Providers Care Inbound Sales Advisor Name Role Phone Navdeep King DO Primary [...] Description 11/03/2024 9:40 AM CDT Office Visit [facility] Internal Medicine [address] [phone] Navdeep King, [address] [place] [id number] Health Maintenance Due Date Last Done Comments Colorectal Cancer Screening Colonoscopy (10 Years) 1978 Annual Physical 1981 Hepatitis C 1996 Hepatitis B Vaccines (1 of 3 - 19+ 3-dose series) 1997 COVID-19 Vaccine (3 - 2023-2 5 season) 2024 03/29/2021, 03/08/2021 Influenza Adult (#1) 2024 PHQ-2 (Physician [place]) 08/20/2024 02/19/2024 DTaP, Tdap and Td Vaccines [...] age to complete this topic Care Teams Inbound Sales Advisor Relationship Specialty Start Date End Date Navdeep King DO [address] [place] [id number] PCP - General FAMILY PRACTICE 03/22/21
--- NOTE | 2024-10-01 10:13 | ED.URI ---
HPI - URI/Sore Throat General Chief Complaint: Upper Respiratory Infection Stated Complaint: cough Time Seen by Provider: 10/01/24 08:57 Source: patient Mode of arrival: ambulatory Limitations: no limitations History of Present Illness HPI Narrative: Patient is a 44-year-old male who presents the ED with report of persistent cough. Patient reports he has had intermittent URI symptoms over the last 1 month. Reports persistent cough, worsening to the point he is now having chest pain and shortness of breath over the last several days. He did go to an urgent care 5 days ago was prescribed a course of steroids and antibiotics. He took both of these as prescribed and states he felt improved for 1 day before symptoms resumed. Has also been taking DayQuil/NyQuil at home. Denies fevers today. Denies pain or swelling in legs. Related Data Home Medications ?Medication ?Instructions ?Recorded ?Confirmed ?Last Taken ?Type losartan 25 mg tablet mg 10/01/24 Unknown History Allergies Allergy/AdvReac Type Severity Reaction Status Date / Time Contrast Media Allergy Unknown RASH Uncoded 10/01/24 09:00 Review of Systems Review of Systems: All systems reviewed & are unremarkable except as noted in HPI. All systems reviewed & are unremarkable except as noted in HPI and below Exam Narrative: GENERAL: Well appearing, well-nourished, non-toxic, in no acute distress. HEAD: Normocephalic, atraumatic. RESPIRATORY: Airway patent, respirations nonlabored. No significant focal lung sounds. Frequent coughing on exam. CARDIOVASCULAR: Regular rate and rhythm without murmurs, rubs, or gallops. MUSCULOSKELETAL: Moves all extremities. No gross deformities. No peripheral edema. SKIN: Warm, dry, normal color. NEURO: A&O X3. Speech clear. Steady gait. No ataxic movements. PSYCHIATRIC: Appropriate mood and affect. Normal interaction. Course Vital Signs Vital signs: Vital Signs Temperature 97.6 F 10/01/24 08:50 Pulse Rate 80 10/01/24 08:50 Respiratory Rate 18 10/01/24 08:50 Blood Pressure 135/100 H 10/01/24 08:50 Pulse Oximetry 97 10/01/24 08:50 Oxygen Delivery Room Air 10/01/24 08:50 Temperature 97.6 F 10/01/24 08:50 Pulse Rate 80 10/01/24 08:50 Respiratory Rate 18 10/01/24 08:50 Blood Pressure 135/100 H 10/01/24 08:50 Pulse Oximetry 97 10/01/24 08:50 Oxygen Delivery Room Air 10/01/24 09:04 MDM - URI/Sore Throat MDM Narrative Medical decision making narrative: Patient presented to ED with 1 month history of URI symptoms, now reporting chest pain or shortness breath. Vital signs are stable upon arrival. Patient is in no acute distress. He does have frequent coughing on exam. Lungs otherwise sound fairly clear on my auscultation. Oxygen is stable on room air. Chest x-ray is clear. EKG without concerning ST changes. Laboratory studies with minimal leukocytosis of 12.5. Normal differential. Patient has been on steroids recently. Likely reactive. No recent fevers. CMP is unremarkable. Stable electrolytes and kidney function. Troponin is undetectable. D-dimer within normal range. Viral swabs are negative. Grainger testing also negative. Discussed lab and imaging findings, overall reassuring w/u with patient. Discussed likelihood of viral etiology/prolonged cough. Will prescribe codeine cough syrup and inhaler for home use. Discussed that further antibiotics or steroids are not indicated at this time, especially since patient did not respond to these over the last couple of days. Discussed continued management of viral etiology. Given strict return precautions, he agrees w/ plan. D/C in stable condition. Medical Records Attestation: I reviewed the patient's medical records. Lab Data Attestation: I reviewed the patient's lab results. 10/01/24 10:13 10/01/24 10:13 Labs: Lab Results 10/01/24 10/01/24 Range/Units 09:02 10:13 WBC 12.5 H (4.5-10.0) K/mm3 RBC 4.99 (4.6-6.20) M/mm3 Hgb 14.1 (14.0-18.0) g/dL Hct 43.0 (42.0-52.0) % MCV 86.2 (80-100) fl MCH 28.3 (26-34) pg MCHC 32.8 (32-36) g/dl RDW 13.1 (11.5-14.5) % Plt Count 315 (150-375) k/mm3 MPV 8.0 (7.4-10.4) fl Immature Gran % (Auto) 1.6 H (0-0.5) % Neut % (Auto) 67.0 (45.5-73.1) % Lymph % (Auto) 23.3 (18.3-44.2) % Grainger % (Auto) 5.8 (2.6-8.5) % Eos % (Auto) 1.8 (0-4.4) % Baso % (Auto) 0.5 (0.2-1.2) % Lymph # (Auto) 2.91 (0.9-3.2) K/mm3 Grainger # (Auto) 0.7 H (0.1-0.6) K/mm3 Eos # (Auto) 0.2 (0-0.3) K/mm3 Baso # (Auto) 0.1 (0.0-0.1) K/mm3 Abs Immat Gran (auto) 0.20 H (0.00-0.031) K/mm3 Absolute Neuts (auto) 8.4 H (1.3-6.7) K/mm3 Absolute Nucleated RBC 0.000 (0.0-0.012) K/mm3 Nucleated RBC % 0.0 (0.0-0.2) % D-Dimer < 0.27 (<0.48) ug/mL Sodium 139 (137-145) mmol/L Potassium 3.9 (3.4-5.0) mmol/L Chloride 103 (98-107) mmol/L Carbon Dioxide 29 (22-30) mmol/L Anion Gap 7 (4-12) mmol/L BUN 13 (9-20) mg/dL Creatinine 0.80 (0.7-1.3) mg/dL Estim Creat Clear Calc 114 ml/min Estimated GFR > 60 (59 - ) Glucose 100 (65-110) mg/dL Calcium 8.7 (8.4-10.2) mg/dL Total Bilirubin 0.7 (0.2-1.3) mg/dL AST 30 (17-59) U/L ALT 58 H (6-50) U/L Alkaline Phosphatase 81 (38-126) U/L Troponin I < 0.012 (0.000-0.034) ng/mL Total Protein 7.0 (6.3-8.2) g/dL Albumin 3.9 (3.5-5.1) g/dL Monoscreen Negative (Negative) Influenza A (RT-PCR) Negative (Negative) Influenza B (RT-PCR) Negative (Negative) RSV (RT-PCR) Negative (Negative) SARS-CoV-2 RNA (RT-PCR) Negative (Negative) Imaging Data Attestation: I personally reviewed and interpreted this imaging study as follows: Radiologist's impression: ITS Impressions Chest X-Ray 10/01/24 09:43 Impression: Normal chest. ECG Data EKG #1: Attestation: I personally reviewed and interpreted this ECG as follows: ECG completion date: 10/01/24 ECG completion time: 10:16 EKG Interpretation: normal rate (76), sinus rhythm and non-specific ST changes Discharge Plan Discharge Clinical Impression: Chronic cough Patient Disposition: Home, Self-Care Condition: Stable Instructions: Antibiotic Form, Chronic Cough (ED), Viral Syndrome (ED), Cold Symptoms (ED) Additional Instructions: Your workup here was reassuring. You likely have a prolonged viral infection that will take some time to resolve. Stay well-hydrated at home. Recommend electrolyte rich fluids, Gatorade, Pedialyte, body armor. Recommend inhaler as needed for shortness of breath. Continue Tessalon Perles and codeine cough syrup as needed for cough. Do not drive or operate machinery while taking codeine medicine. Do not mix with alcohol. Continue Tylenol and Ibuprofen for discomfort. Continue [id number] cough and cold medicines for symptom relief, Delsym, Mucinex, DayQuil, NyQuil, Sudafed, Robitussin, TheraFlu. Follow up with your primary care doctor for further evaluation. Return to the ED if you experience worsening or severe difficulty breathing, persistent chest pain, unable to keep down food or drink, new fevers, or any other symptoms of concern. Patient Language: Bulgarian Prescriptions: New ipratropium bromide 17 mcg/actuation HFA aerosol inhaler 2 puff inhalation Q8H PRN (Reason: shortness of breath or wheezing) Qty: 12.9 0RF codeine-guaifenesin 10-100 mg/5 mL liquid 5 ml PO Q6H PRN (Reason: cough) Qty: 118 0RF No Action losartan 25 mg tablet Follow-up/Referrals: Kana King DO [Primary Care Provider] - Time of Disposition: 11:44
[2024-10-01 10:18] LABS: Basophils Absolute Auto 0.1 K/mm3 (0.0-0.1); Basophils Percent Auto 0.5 % (0.2-1.2); Eosinophils Absolute Auto 0.2 K/mm3 (0-0.3); Eosinophils Percent Auto 1.8 % (0-4.4); Hemoglobin 14.1 g/dL (14.0-18.0); Immature Granulocyte Percent A 1.6 % (0-0.5); Lymphocytes Absolute Auto 2.91 K/mm3 (0.9-3.2); Lymphocytes Percent Auto 23.3 % (18.3-44.2); Mean Corpuscular HGB Conc 32.8 g/dl (32-36); Mean Corpuscular Hemoglobin 28.3 pg (26-34); Mean Corpuscular Volume 86.2 fl (80-100); Monocytes Absolute Auto 0.7 K/mm3 (0.1-0.6); Monocytes Percent Auto 5.8 % (2.6-8.5); Neutrophils Absolute Auto 8.4 K/mm3 (1.3-6.7); Platelet Count Result 315 k/mm3 (150-375); Red Blood Count 4.99 M/mm3 (4.6-6.20); Red Cell Distribution Width 13.1 % (11.5-14.5); White Blood Count 12.5 K/mm3 (4.5-10.0)
[2024-10-01 10:36] LABS: D Dimer < 0.27 ug/mL (<0.48)
[2024-10-01 10:38] LABS: Alanine Aminotransferase 58 U/L (6-50); Albumin Level 3.9 g/dL (3.5-5.1); Alkaline Phosphatase 81 U/L (38-126); Anion Gap 7 mmol/L (4-12); Aspartate Amino Transferase 30 U/L (17-59); Bilirubin,Total 0.7 mg/dL (0.2-1.3); Blood Urea Nitrogen 13 mg/dL (9-20); Calcium 8.7 mg/dL (8.4-10.2); Carbon Dioxide 29 mmol/L (22-30); Chloride 103 mmol/L (98-107); Estimated CRCL calculation 114 ml/min; Estimated Glomerular Filt Rate > 60; Glucose 100 mg/dL (65-110); Potassium 3.9 mmol/L (3.4-5.0); Sodium 139 mmol/L (137-145)
[2024-10-01 10:50] LABS: Troponin I < 0.012 ng/mL (0.000-0.034)
[2024-10-01 11:18] LABS: Monoscreen Negative (Negative); Negative Monotest Control Negative (Negative); Positive Monotest Control Positive (Positive)
[2024-10-01 12:00] VITALS: BP 135/100; PULSE 75; RESP 16; O2SAT 97
== END 2024-10-01 12:36 | disposition home or self-care (01) ==
PROVIDERS: Emergency Medicine; Emergency Provider Physician Assistant; PCP Anesthesiology
DX: R05.3 Chronic cough (principal); Z20.822 Contact with and (suspected) exposure to COVID-19; R94.31 Abnormal electrocardiogram [ECG] [EKG]
CPT/HCPCS: 36415; 71046; 80053; 84484; 85025; 85380; 86308; 87637; 93005; 99284